=== PATIENT | female | born 1975 | race Caucasian/White ===

== ENCOUNTER 2018-02-15 09:12 | Emergency (ER) | payer MEDICAID ==
[~2018-02-15] VITALS: Ht 154.9 cm; Wt 70.0 kg
[2018-02-15] MEDS ORDERED: NITROGLYCERIN 0.4MG TABLET SL SL PRN (10:15)
[2018-02-15] MEDS ORDERED: CLONIDINE 0.1MG TABLET PO ONE (10:30)
[2018-02-15 10:55] LABS: CHLORIDE 108 mEq/L (98-107)
[2018-02-15 10:56] LABS: BASOPHILS % 0.3 % (0.0-2.0); EOSINOPHILS % 1.1 % (0.0-5.0); HEMATOCRIT. 33.5 % (36.0-48.0); HEMOGLOBIN. 11.7 g/dL (12.0-16.0); MEAN CORPUSCULAR HEMOGLOBIN 29.3 pg (28.0-32.0); MEAN CORPUSCULAR VOLUME 84.2 fL (81.0-99.0); MONOCYTES % 6.3 % (2.0-8.0); NEUTROPHILS % 67.3 % (40.0-76.0); PLATELET 337 x1000/uL (130-400); RED BLOOD CELL COUNT 3.98 mill/uL (4.2-5.4); RED CELL DISTRIBUTION WIDTH 13.9 % (11.6-14.6)
[2018-02-15 10:58] LABS: PARTIAL THROMBOPLASTIN TIME 25.3 sec (23.4-31.0); PROTHROMBIN TIME 10.1 sec (9.4-11.6)
[2018-02-15 11:02] LABS: HCG SCREEN NEGATIVE
[2018-02-15 15:23] VITALS: BP 133/82
== END 2018-02-15 15:29 | disposition home or self-care (01) ==
LOC: ER 09:37 → CANBEDREQ 16:36
DX: R07.89 Other chest pain (principal); R06.02 Shortness of breath; I10 Essential (primary) hypertension
CPT/HCPCS: 36415; 71045; 80048; 84484; 84703; 85025; 85610; 85730; 93005; 99285